=== PATIENT | male | born 1955 | race Caucasian/White ===

== ENCOUNTER 2022-07-30 04:11 | Day surgery (SDC) | payer OTHER ==
[2022-07-27 13:12] VITALS: BMI 21.6
[2022-07-30] MEDS ORDERED: DEXAMETHASONE SOD PHOSPHATE 10 MG/1 ML VIAL ONE ×2 (09:19→09:29)
[2022-07-30] MEDS ORDERED: ROPIVACAINE HCL 0.5% 30ML VIAL ONE (09:19)
[2022-07-30] MEDS ORDERED: MIDAZOLAM HCL 2 MG/2 ML SINGLE DOSE VIAL ONE ×2 (09:20→09:31)
[2022-07-30] MEDS ORDERED: ACETAMINOPHEN INJECTION 100 ML IVPB ONE (09:29)
[2022-07-30] MEDS ORDERED: BUPIVACAINE HCL/PF 0.5% (5MG/ML) 10 ML VIAL ONE (09:29)
[2022-07-30] MEDS ORDERED: PROPOFOL 60 ML ONE (09:31)
[2022-07-30] MEDS ORDERED: ceFAZolin SODIUM 1 GM VIAL IVPB ONE (09:49)
[2022-07-30] MEDS ORDERED: DEXAMETHASONE SOD PHOSPHATE 4 MG/1 ML VIAL ONE (10:07)
[2022-07-30] MEDS ORDERED: ONDANSETRON 4 MG/2 ML VIAL ONE (10:07)
[2022-07-30] MEDS ORDERED: ONDANSETRON 4 MG/2 ML VIAL IVPUSH PRN (11:03)
[2022-07-30] MEDS ORDERED: oxyCODONE HCL 5 MG TABLET PO PRN (11:03)
[2022-07-30] MEDS ORDERED: ACETAMINOPHEN 325 MG TABLET (FP) PO PRN (11:03)
[2022-07-30] MEDS ORDERED: LACTATED RINGERS SOLUTION 1,000 ML IV SCH (11:15)
[2022-07-30 14:47] VITALS: TEMP 97.7
[2022-07-30 18:42] VITALS: BP 122/66; PULSE 90; RESP 20
== END 2022-07-30 18:05 | disposition home or self-care (01) ==
LOC: JASU-SURG 04:11
PROVIDERS: ATTEND Orthopaedic Surgery
PROC: 0QSJ04Z Reposition Right Fibula with Internal Fixation Device, Open Approach (ICD-10-PCS; principal; 2022-07-30 09:45)
DX: S82.61XA Displaced fracture of lateral malleolus of right fibula, initial encounter for closed fracture (principal); X58.XXXA Exposure to other specified factors, initial encounter; Y92.9 Unspecified place or not applicable; Y93.9 Activity, unspecified
CPT/HCPCS: 27792; C1713; 76000-TC-FY; 82962; 94760; 97116-GP; 97161-GP; C1725; C9803-CS; J1100; U0003; U0005